=== PATIENT | male | born 1960 | race Caucasian/White ===

== ENCOUNTER 2020-07-10 12:33 | Observation (INO) | payer BC ==
[2020-07-10] MEDS ORDERED: Sodium Chloride 0.9% 1000 ML 1,000 ML ONE (12:37)
[2020-07-10] MEDS ORDERED: DECADRON 10MG INJ. IV ONE (12:45)
[2020-07-10] MEDS ORDERED: Ventolin Hfa MDI IH STA (12:46)
[2020-07-10 12:49] LABS: A-aADO2 188; ABG HEMOGLOBIN 15.5; ARTERIAL BLD GAS O2 SATURATION 89.3 % (95-100); ARTERIAL BLOOD GAS BASE EXCESS 0.9 (-2.0-2.0); ARTERIAL BLOOD GAS FIO2 40 %; ARTERIAL BLOOD GAS PCO2 33 mmHg (35-45); ARTERIAL BLOOD GAS PO2 56 mmHg (75-100); ARTERIAL BLOOD GAS pH 7.47 (7.35-7.45); CARBOXYHEMOGLOBIN 2.9 % THgb (0.0-6.9); HGB O2 SAT 86.4 g/dF (94-100); Lactic Acid 1.9 (0.4-2.0); Methhemoglobin 0.3 % (1.4-1.5); paO2 pAO1 0.23
[2020-07-10 12:50] LABS: ABG SITE LEFT RADIAL; ALLEN TEST OK? YES
[2020-07-10] MEDS ORDERED: DECADRON 10MG INJ. ONE (12:53)
[2020-07-10 13:01] LABS: Hematocrit 46.5 % (42-50); Hemoglobin 15.1 gm/dl (12.5-18.0); Mean Cell Volume 80.2 fl (78-100); Mean Corpuscular Hgb Concent. 32.5 g/dl (32-36); Mean Platelet Volume 9.2 fl (7.5-11.0); Platelet Count 415 K/mm3 (150-450); Red Cell Distribution Width 14.2 % (11.5-14.0); White Blood Count 13.4 K/mm3 (4.0-10.5)
[2020-07-10 13:14] LABS: INR 1.15 (0.8-3.0)
[2020-07-10] MEDS ORDERED: VENTOLIN COMMON CANISTER IH ONE (13:15)
[2020-07-10 13:17] LABS: PTT 31.2 SECONDS (24.1-36.1)
[2020-07-10 13:27] LABS: ALBUMIN 3.7 g/dL (3.5-5.0); ALKALINE PHOSPHATASE 125 U/L (38-126); ANION GAP 10.9 MEQ/L (5-15); BLOOD UREA NITROGEN 22 mg/dL (9-20); CHLORIDE 101 mmol/L (98-107); Calcium 9.1 mg/dL (8.4-10.2); Carbon Dioxide 30 mmol/L (22-30); EST GLOMERULAR FILTRATION RATE > 60.0 ML/MIN; Glucose 112 mg/dL (74-106); MAGNESIUM 2.1 mg/dL (1.6-2.3); NT PRO BNP 168 pg/mL (0-900); Potassium 4.3 mmol/L (3.5-5.1); SGOT/AST 68 U/L (17-59); SGPT/ALT 36 U/L (0-50); SODIUM 137 mmol/L (137-145); Total Protein 7.2 g/dL (6.3-8.2)
[2020-07-10 13:45] LABS: ANISOCYTOSIS 1+; ATYPICAL LYMPHS 2 %; BAND 7 % (0.0-2.0); Eosinophil 1 % (0.00-3.0); Lymphocytes 8 % (24-44); Monocyte 12 % (0.0-12.0); Neutrophils 70 % (36.-66.); Platelet Estimate NORMAL (NORMAL); Total Cells Counted 100; Toxic Granulation 1+
[2020-07-10] MEDS ORDERED: LEVOFLOXACIN 750MG/150ML D5W 750 MG/150 ML BAG IV STA (13:59)
[2020-07-10] MEDS ORDERED: Zosyn 3.375 GM Vial 3.375 GM in Sodium Chloride 100ML MINI-BAG PLUS 100 ML IV ONE (13:59)
--- NOTE | 2020-07-10 14:00 | XRAY ---
Indication: Short of breath. Positive Covid 19. Multiple contiguous axial images obtained through the chest using 100 cc Isovue 370 contrast and PE protocol. Comparison: None There is good opacification of the pulmonary arteries including lobar and segmental branches. No pulmonary embolus. Heart is borderline enlarged. Aorta is normal in course and caliber. 1.1 x 3.0 cm distal right peritracheal and 1.1 x 2.2 cm subcarinal prominent lymph nodes. No pathologic hilar lymphadenopathy. Small hiatal hernia. Lungs demonstrates extensive diffuse bilateral airspace disease without consolidation/effusion. Bony thorax intact. Limited upper abdomen demonstrates 12.6 cm splenomegaly. Impression: 1. Negative pulmonary embolus. 2. Extensive diffuse bilateral airspace disease without consolidation/effusion. 3. Prominent mediastinal lymph nodes presumed reactive. 4. Incidental borderline cardiomegaly, small hiatal hernia, and splenomegaly.
[2020-07-10] MEDS ORDERED: Zosyn 3.375 GM Vial IV ONE ×2 (14:04→22:46)
[2020-07-10] MEDS ORDERED: LEVOFLOXACIN 750MG/150ML D5W 750 MG/150 ML BAG IV ONE (14:05)
[2020-07-10] MEDS ORDERED: Sodium Chloride 100ML MINI-BAG PLUS 100 ML IV ONE (14:05)
--- NOTE | 2020-07-10 14:15 | ERPHSYRPT ---
- History of Present Illness Time Seen by Provider: 07/10/20 12:33 Source: patient Exam Limitations: clinical condition Patient Subjective Stated Complaint: shortness of breath, covid positive last week Triage Nursing Assessment: Pt brought to the ER by his , hypertensive, hypoxic, O2 was 60% on arrival and placed on a non-rebreather and it went to 100%, lungs with crackles anterior and posterior throughout, unable to get medical history, pulses normal, covid positive last week, skin n/w/d Physician History: 60 years old male with history of hypothyroidism presented in the ER with chief complaint of respiratory distress. Patient reports she has been having dry cough with shortness of breath for almost 1 week, positive COVID-19 day and late with progressive worsening for the last 2 to 3 days where he is getting short of breath even at rest pain and minimal activity he cannot catch his breath. He is feeling chest tightness wheezing, pressure with chills but no fever. Generalized weakness fatigue and body aches. On presentation his oxygen saturation is in low 60s, placed on nonrebreather and it improved pretty quickly to above 95%. Timing/Duration: week(s) (1), gradual onset, worse Activities at Onset: rest Severity of Dyspnea-Max: severe Severity of Dyspnea-Current: severe Possible Cause: illness exposure Modifying Factors: Improves With: albuterol inhaler. Worsens With: coughing, deep breath, exertion Associated Symptoms: cough, chest pain/discomfort, loss of appetite, wheezing, weakness, chills, tightness, No fever, No muscle spasms hands, No productive cough Allergies/Adverse Reactions: No Known Drug Allergies Allergy (Verified 07/10/20 12:46) Home Medications: Levothyroxine Sodium 75 Mcg [Synthroid 75 Mcg] 75 mcg PO DAILY 07/10/20 [History] Travel Risk - International Travel Have you traveled outside of the country in past 3 weeks: No - Coronavirus Screening Are you exhibiting any of the following symptoms?: Yes Symptoms: Shortness of Breath Close contact with a COVID-19 positive Pt in past 14-21 Days: Yes - Review of Systems Constitutional: Chills, Fatigue, Malaise, Weakness Eyes: No Symptoms Ears, Nose, & Throat: Nose Congestion Respiratory: Cough, Dyspnea, Dyspnea on Exertion (LEBRON), Wheezing Abdominal/Gastrointestinal: No Symptoms Genitourinary Symptoms: No Symptoms Musculoskeletal: Myalgias Neurological: No Symptoms Psychological: No Symptoms Endocrine: No Symptoms Hematologic/Lymphatic: No Symptoms Immunological/Allergic: No Symptoms - Past Surgical History Past Surgical History: No - Social History Smoking Status: Never smoker Exposure to second hand smoke: No Drug Use: none Patient Lives Alone: No - Nursing Vital Signs Nursing Vital Signs: Initial Vital Signs Temperature 97.5 F 07/10/20 12:34 Pulse Rate 84 07/10/20 12:34 Respiratory Rate 39 H 07/10/20 12:34 Blood Pressure 169/93 07/10/20 12:34 O2 Sat by Pulse Oximetry 60 L 07/10/20 12:34 Pain Scale Pain Intensity 0 - Physical Exam General Appearance: moderate distress, alert, anxiety Eye Exam: PERRL/EOMI, eyes nml inspection Ears, Nose, Throat Exam: hearing grossly normal, pharyngeal erythema Neck Exam: normal inspection, non-tender, supple, full range of motion Respiratory Exam: respiratory distress, airway intact, diminished breath sounds, crackles/rales, wheezing Cardiovascular/Chest Exam: normal heart sounds, regular rate/rhythm Abdominal/Gastrointestinal Exam: soft, normal bowel sounds, No tenderness Extremity Exam: non-tender, normal range of motion Neurologic Exam: alert, oriented x 3, cooperative, 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 Skin Exam: normal color, warm SpO2 Interpretation: normal SpO2: 95 O2 Delivery: Room Air - Course EKG Interpreted by Me: RATE (81), Sinus Rhythm, NORMAL AXIS, NORMAL INTERVALS, NORMAL QRS Ordered Tests: Active Orders 24 hr Category Date Time Status EKG-ER Only STAT Care 07/10/20 12:44 Active IV Insertion STAT Care 07/10/20 12:44 Active NPO (ED) STAT Care 07/10/20 12:44 Active CHEST 1 VIEW (PORTABLE) Stat Exams 07/10/20 12:45 Completed CHEST WITH CONTRAST [CT] Stat Exams 07/10/20 12:55 Completed ARTERIAL BLOOD GASES Stat Lab 07/10/20 12:44 Completed BLOOD CULTURE Stat Lab 07/10/20 13:55 Received CBC W DIFF Stat Lab 07/10/20 12:50 Completed CMP Stat Lab 07/10/20 12:50 Completed Lactic Acid Stat Lab 07/10/20 12:44 Completed Lactic Acid Stat Lab 07/10/20 14:50 Received MAGNESIUM Stat Lab 07/10/20 12:50 Completed Manual Differential NC Stat Lab 07/10/20 12:50 Completed NT PRO BNP Stat Lab 07/10/20 12:50 Completed PROTIME WITH INR Stat Lab 07/10/20 12:50 Completed PTT Stat Lab 07/10/20 12:50 Completed TROPONIN Q3H Lab 07/10/20 12:50 Completed TROPONIN Q3H Lab 07/10/20 15:45 Ordered TROPONIN Q3H Lab 07/10/20 18:45 Ordered TROPONIN Q3H Lab 07/10/20 21:45 Ordered TROPONIN Q3H Lab 07/11/20 00:45 Ordered TSH [TSH, 3RD Generation] Stat Lab 07/10/20 12:50 Completed UA W/RFX UR CULTURE Stat Lab 07/10/20 12:44 Ordered Respiratory MDI STAT RT 07/10/20 13:16 Active Respiratory Therapy Assessment DAILY RT 07/10/20 13:16 Active Transfer Order Routine Transfer 07/10/20 Ordered Medication Summary Generic Name Dose Route Start Last Admin Trade Name Freq PRN Reason Stop Dose Admin Levofloxacin/Dextrose 750 mg in 150 mls @ 100 mls/hr 07/10/20 13:59 07/10/20 14:10 Levofloxacin 750mg/150ml D5w IV 07/10/20 15:28 100 ml/hr STAT STA 100 mls/hr Administration Remdesivir 200 mg/ Sodium 250 mls @ 125 mls/hr 07/10/20 14:22 07/10/20 15:26 Chloride IV 07/10/20 16:21 125 mls/hr ONCE ONE Administration Discontinued Medications Generic Name Dose Route Start Last Admin Trade Name Freq PRN Reason Stop Dose Admin Albuterol Sulfate 1 gm 07/10/20 12:46 Ventolin Hfa Mdi IH 07/10/20 12:47 ONCE STA Albuterol Sulfate 4 puff 07/10/20 13:15 07/10/20 12:50 Ventolin Common Canister IH 07/10/20 13:16 4 puff STAT ONE Administration Dexamethasone Sodium Phosphate 10 mg 07/10/20 12:45 07/10/20 12:54 Decadron 10mg Inj. IV 07/10/20 12:46 10 mg STAT ONE Administration Dexamethasone Sodium Phosphate Confirm 07/10/20 12:53 Decadron 10mg Inj. Administered 07/10/20 12:54 Dose 10 mg .ROUTE .STK-MED ONE Diphenhydramine HCl Confirm 07/10/20 15:12 Benadryl 50 Mg/Ml Administered 07/10/20 15:13 Dose 50 mg .ROUTE .STK-MED ONE Sodium Chloride Confirm 07/10/20 12:37 Sodium Chloride 0.9% 1000 Ml Administered 07/10/20 12:38 Dose 1,000 mls @ ud .ROUTE .STK-MED ONE Piperacillin Sod/Tazobactam 100 mls @ 200 mls/hr 07/10/20 13:59 07/10/20 14:11 Sod 3.375 gm/ Sodium Chloride IV 07/10/20 14:28 200 mls/hr STAT ONE Administration Sodium Chloride Confirm 07/10/20 14:05 Sodium Chloride 100ml Mini-Bag Plus Administered 07/10/20 14:06 Dose 100 mls @ ud IV .STK-MED ONE Levofloxacin/Dextrose Confirm 07/10/20 14:05 Levofloxacin 750mg/150ml D5w Administered 07/10/20 14:06 Dose 750 mg in 150 mls @ ud IV .STK-MED ONE Piperacillin Sod/Tazobactam Sod Confirm 07/10/20 14:04 Zosyn 3.375 Gm Vial Administered 07/10/20 14:05 Dose 3.375 gm IV .STK-MED ONE Lab/Rad Data: Laboratory Result Diagrams 07/10/20 12:50 07/10/20 12:50 Laboratory Results 07/10/20 07/10/20 07/10/20 Range/Units 12:50 12:50 12:50 WBC (4.0-10.5) K/mm3 RBC (4.1-5.6) M/mm3 Hgb (12.5-18.0) gm/dl Hct (42-50) % MCV (78-100) fl MCH (26-32) pg MCHC (32-36) g/dl RDW (11.5-14.0) % Plt Count (150-450) K/mm3 MPV (7.5-11.0) fl Segmented Neutrophils (36.-66.) % Band Neutrophils (0.0-2.0) % Lymphocytes (Manual) (24-44) % Monocytes (Manual) (0.0-12.0) % Eosinophils (Manual) (0.00-3.0) % Atypical Lymphocytes % Toxic Granulation Platelet Estimate (NORMAL) RBC Morphology Anisocytosis PT 13.0 H (8.83-12.87) SECONDS INR 1.15 (0.8-3.0) APTT 31.2 (24.1-36.1) SECONDS Puncture Site pCO2 (35-45) mmHg pO2 (75-100) mmHg Base Excess (-2.0-2.0) O2 Saturation (94-100) g/dF ABG pH (7.35-7.45) ABG HCO3 (22-28) ABG O2 Sat (Measured) (95-100) % Dionicio Test A-a Gradient a/A Ratio Hemoglobin Carboxyhemoglobin (0.0-6.9) % THgb Methemoglobin (1.4-1.5) % Potassium (3.5-5.1) Temperature C POC O2 Flow Rate % Sodium (137-145) mmol/L Chloride (98-107) mmol/L Carbon Dioxide (22-30) mmol/L Anion Gap (5-15) MEQ/L BUN (9-20) mg/dL Creatinine (0.66-1.25) mg/dL Estimated GFR ML/MIN Glucose (74-106) mg/dL Lactic Acid (0.4-2.0) Calcium (8.4-10.2) mg/dL Magnesium (1.6-2.3) mg/dL Total Bilirubin (0.2-1.3) mg/dL AST (17-59) U/L ALT (0-50) U/L Alkaline Phosphatase (38-126) U/L Troponin I < 0.012 (0.000-0.034) ng/mL NT-Pro-B Natriuret Pep (0-900) pg/mL Serum Total Protein (6.3-8.2) g/dL Albumin (3.5-5.0) g/dL TSH 3rd Generation 4.230 (0.47-4.68) mIU/L 07/10/20 07/10/20 07/10/20 Range/Units 12:50 12:50 12:44 WBC 13.4 H (4.0-10.5) K/mm3 RBC 5.80 H (4.1-5.6) M/mm3 Hgb 15.1 (12.5-18.0) gm/dl Hct 46.5 (42-50) % MCV 80.2 (78-100) fl MCH 26.0 (26-32) pg MCHC 32.5 (32-36) g/dl RDW 14.2 H (11.5-14.0) % Plt Count 415 (150-450) K/mm3 MPV 9.2 (7.5-11.0) fl Segmented Neutrophils 70 H (36.-66.) % Band Neutrophils 7 H (0.0-2.0) % Lymphocytes (Manual) 8 L (24-44) % Monocytes (Manual) 12 (0.0-12.0) % Eosinophils (Manual) 1 (0.00-3.0) % Atypical Lymphocytes 2 % Toxic Granulation 1+ Platelet Estimate NORMAL (NORMAL) RBC Morphology ABNORMAL Anisocytosis 1+ PT (8.83-12.87) SECONDS INR (0.8-3.0) APTT (24.1-36.1) SECONDS Puncture Site LEFT RADIAL pCO2 33 L (35-45) mmHg pO2 56 L (75-100) mmHg Base Excess 0.9 (-2.0-2.0) O2 Saturation 86.4 L (94-100) g/dF ABG pH 7.47 H (7.35-7.45) ABG HCO3 24.0 (22-28) ABG O2 Sat (Measured) 89.3 L (95-100) % Dionicio Test YES A-a Gradient 188 a/A Ratio 0.23 Hemoglobin 15.5 Carboxyhemoglobin 2.9 (0.0-6.9) % THgb Methemoglobin 0.3 L (1.4-1.5) % Potassium 4.3 4.0 (3.5-5.1) Temperature 37.0 C POC O2 Flow Rate 40 % Sodium 137 (137-145) mmol/L Chloride 101 (98-107) mmol/L Carbon Dioxide 30 (22-30) mmol/L Anion Gap 10.9 (5-15) MEQ/L BUN 22 H (9-20) mg/dL Creatinine 0.90 (0.66-1.25) mg/dL Estimated GFR > 60.0 ML/MIN Glucose 112 H (74-106) mg/dL Lactic Acid 1.9 (0.4-2.0) Calcium 9.1 (8.4-10.2) mg/dL Magnesium 2.1 (1.6-2.3) mg/dL Total Bilirubin 0.80 (0.2-1.3) mg/dL AST 68 H (17-59) U/L ALT 36 (0-50) U/L Alkaline Phosphatase 125 (38-126) U/L Troponin I (0.000-0.034) ng/mL NT-Pro-B Natriuret Pep 168 (0-900) pg/mL Serum Total Protein 7.2 (6.3-8.2) g/dL Albumin 3.7 (3.5-5.0) g/dL TSH 3rd Generation (0.47-4.68) mIU/L - Progress Progress: improved Air Movement: fair Progress Note: 07/10/20 14:14 Patient was in moderate to severe distress on presentation with sats around low 60s. Placed on nonrebreather and it quickly turned around with sats well above 95% and his work of breathing also improved. He is given albuterol puffs and Decadron and switched to 5 L oxygen with sats around 94% with much improved level of distress. EKG showed sinus rhythm with no acute ST elevation. Has a white count of 13. I have obtained CTA chest which ruled out pulmonary embolism but has bilateral airspace disease which is consistent with Covid 19 infection. He is given a dose of broad-spectrum antibiotics Levaquin and Zosyn along with remdesivir. Discussed with Dr. Ruiz and patient is admitted to ICU. Blood Culture(s) Obtained: Yes Antibiotics given: Yes Discussed with Dr.: Other () Will see patient in: hospital (full admit) Counseled pt/family regarding: lab results, diagnosis, rad results - Departure Departure Disposition: In-patient Admission Clinical Impression: COVID-19 virus detected Pneumonia Qualifiers: Pneumonia type: due to unspecified organism Laterality: bilateral Lung location: unspecified part of lung Qualified Code(s): J18.9 - Pneumonia, unspecified organism Respiratory failure Qualifiers: Chronicity: acute Respiratory failure complication: hypoxia Qualified Code(s): J96.01 - Acute respiratory failure with hypoxia Condition: Fair Critical Care Time: Yes Critical Care Time(excluding separately billable procedures): Critical 30-74 mins Referrals: DOCTOR,NO FAMILY [Primary Care Provider] -
[2020-07-10] MEDS ORDERED: REMDESIVIR 200 MG in Sodium Chloride 0.9% 250 ML 250 ML IV ONE (14:22)
--- NOTE | 2020-07-10 14:35 | XRAY ---
Indication: Short of breath. Positive Covid 19. Portable chest demonstrates diffuse bilateral patchy airspace disease without consolidation/large effusion. Heart is borderline enlarged. Bony thorax intact.
[2020-07-10] MEDS ORDERED: BENADRYL 50 MG/ML ONE (15:12)
[2020-07-10] MEDS ORDERED: Zofran 4 MG/2 ML VIAL IV PRN (16:17)
[2020-07-10] MEDS ORDERED: TYLENOL 325 MG PO PRN (16:17)
[2020-07-10] MEDS ORDERED: ENOXAPARIN SODIUM SQ SCH (16:45)
[2020-07-10] MEDS ORDERED: Ativan 1 MG PO PRN (16:52)
[2020-07-10] MEDS ORDERED: Lactated Ringers 1,000 ML IV SCH (17:00)
[2020-07-10] MEDS: VENTOLIN COMMON CANISTER IH SCH ×2 (17:30→17:58)
[2020-07-10] MEDS: Zosyn 3.375 GM Vial 3.375 GM in Sodium Chloride 100ML MINI-BAG PLUS 100 ML IV SCH (18:00)
[2020-07-10] MEDS: ENOXAPARIN SODIUM SQ SCH ×2 (22:36→23:03)
[2020-07-10] MEDS ORDERED: Sodium Chloride 0.9% 100 ML IVPB 0 ML IV ONE (22:48)
[2020-07-10] MEDS: Decadron 4 MG INJ IV SCH (23:04)
[2020-07-10] MEDS: Pepcid 20 MG VIAL IV SCH (23:04)
[2020-07-11] MEDS: Zosyn 3.375 GM Vial 3.375 GM in Sodium Chloride 100ML MINI-BAG PLUS 100 ML IV SCH ×3 (00:12→12:14)
[2020-07-11 00:45] LABS: Appearance CLEAR (CLEAR); Bilirubin NEGATIVE (NEGATIVE); Blood NEGATIVE Ery/ul (0-5); Glucose >=500 mg/dL (NEGATIVE); Ketones NEGATIVE (NEGATIVE); Leukocyte Esterase NEGATIVE (NEGATIVE); Nitrite NEGATIVE (NEGATIVE); Protein,Urine Dip NEGATIVE (Negative); Specific Gravity 1.035 (1.005-1.025); Urobilinogen NEGATIVE mg/dL (0-1)
[2020-07-11 05:27] LABS: Hematocrit 42.8 % (42-50); Hemoglobin 13.9 gm/dl (12.5-18.0); Mean Corpuscular Hgb Concent. 32.5 g/dl (32-36); Mean Platelet Volume 9.2 fl (7.5-11.0); Platelet Count 356 K/mm3 (150-450); Red Blood Count 5.35 M/mm3 (4.1-5.6); Red Cell Distribution Width 13.8 % (11.5-14.0); White Blood Count 9.4 K/mm3 (4.0-10.5)
[2020-07-11] MEDS: VENTOLIN COMMON CANISTER IH SCH ×2 (05:50→10:15)
[2020-07-11 05:51] LABS: ALBUMIN 3.2 g/dL (3.5-5.0); ALKALINE PHOSPHATASE 105 U/L (38-126); ANION GAP 8.6 MEQ/L (5-15); BLOOD UREA NITROGEN 22 mg/dL (9-20); CHLORIDE 104 mmol/L (98-107); Calcium 8.5 mg/dL (8.4-10.2); Carbon Dioxide 26 mmol/L (22-30); Creatinine 1 0.75 mg/dL (0.66-1.25); EST GLOMERULAR FILTRATION RATE > 60.0 ML/MIN; Glucose 140 mg/dL (74-106); Potassium 4.6 mmol/L (3.5-5.1); SGOT/AST 46 U/L (17-59); SGPT/ALT 28 U/L (0-50); SODIUM 134 mmol/L (137-145); Total Protein 6.4 g/dL (6.3-8.2)
[2020-07-11 06:14] LABS: ANISOCYTOSIS 1+; Lymphocytes 14 % (24-44); Monocyte 4 % (0.0-12.0); Neutrophils 82 % (36.-66.); Platelet Estimate NORMAL (NORMAL); Poikilocytosis 1+; Polychromasia 1+; Total Cells Counted 100
[2020-07-11 07:36] LABS: INR 1.31 (0.8-3.0); PROTIME 14.8 SECONDS (8.83-12.87)
[2020-07-11] MEDS: ENOXAPARIN SODIUM SQ SCH (08:10)
[2020-07-11] MEDS ORDERED: ECOTRIN 81 MG PO SCH (10:00)
[2020-07-11] MEDS ORDERED: LEVOFLOXACIN 750MG/150ML D5W 750 MG/150 ML BAG IV SCH (10:00)
[2020-07-11] MEDS ORDERED: CLARITIN 10 MG PO SCH (10:00)
[2020-07-11] MEDS ORDERED: NON-FORMULARY ITEM (Multivitamin [Multivitamin] 1 EACH) PO SCH (10:00)
[2020-07-11] MEDS ORDERED: SYNTHROID 75 MCG PO SCH (10:00)
[2020-07-11] MEDS ORDERED: THERAGRAN MULTIVITAMIN PO SCH (10:00)
[2020-07-11] MEDS: Decadron 4 MG INJ IV SCH (10:08)
[2020-07-11] MEDS: Pepcid 20 MG VIAL IV SCH (10:08)
--- NOTE | 2020-07-11 11:15 | SSS ---
CHIEF COMPLAINT: Very short of breath. 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 Apparently he has been short of breath for five to seven days and has self-isolated but today he could not breathe at all and was brought in by ambulance. He presented with like 40% O2 in the emergency room and was put on 100% rebreather. Slowly his oxygen got up to 88%. He has no history of lung disease. He has history of hypothyroidism. He stated he has had no fever but chills, tightness in his chest, general myalgia and severe weakness. I am not for sure where he got the disease but he does work in the public. PHYSICAL EXAMINATION: The patient is an appropriately aged 60 year old white male who is having trouble breathing, looks quite panicky. VITAL SIGNS: Temperature 98F, pulse 110, respirations 20, blood pressure 170/93. O2 saturation presently on 100% is about 90%. HEENT: Pupils equal and reactive to light. Hears fairly well. Apparently his stated he will say "yes" to a lot of things that he does not understand as there is a language problem to some degree. CHEST: Few crackles bilateral, decreased breath sounds. CVS: Tachycardic, regular rate. ABDOMEN: Slightly distended, soft. No tenderness. NEUROLOGIC: He is alert, orientated and cooperative. Cranial nerves intact. 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 He uses legs without problems. EXTREMITIES: No cyanosis. No edema. SKIN: Normal. IMPRESSION: The patient's COVID test was positive. CT scan did show COVID pneumonia extensively. Initially was stabilized with oxygen like at 7. Overnight he deteriorated. By the time I saw him they had him on high flow oxygen and he was struggling with his O2 in the 90's. He was anticoagulated with Lovenox. He was given 8 mg of Decadron and 200 mg Remdesivir. We reached out to [facility] and they have agreed to take him in transfer. They are waiting for an ICU bed at the present time. The patient is stable at the present time. Expect to be able to transfer him before afternoon is over.
[2020-07-11 12:22] VITALS: BP 119/70
[2020-07-11 12:48] LABS: A-aADO2 626; ABG HEMOGLOBIN 14.2; ABG POTASSIUM 4.4 (3.5-5.1); ARTERIAL BLD GAS O2 SATURATION 82.6 % (95-100); ARTERIAL BLOOD GAS FIO2 100 %; ARTERIAL BLOOD GAS PCO2 31 mmHg (35-45); ARTERIAL BLOOD GAS pH 7.49 (7.35-7.45); CARBOXYHEMOGLOBIN 1.5 % THgb (0.0-6.9); HCO3- 23.6 (22-28); HGB O2 SAT 80.9 g/dF (94-100); Methhemoglobin 0.6 % (1.4-1.5); paO2 pAO1 0.07
[2020-07-11 12:49] LABS: ABG SITE RIGHT RADIAL; ALLEN TEST OK? YES; ARTERIAL BLOOD GAS PO2 48 mmHg (75-100)
[2020-07-11] MEDS ORDERED: REMDESIVIR 100 MG in Sodium Chloride 0.9% 100 ML IVPB 100 ML IV SCH (14:00)
[2020-07-11 14:37] VITALS: PULSE 75; O2SAT 94
== END 2020-07-11 14:36 | disposition home or self-care (01) ==
LOC: ED 12:33 → MED SURG 16:08 → INTOOBSV 16:08
PROVIDERS: ADMIT Family Medicine; ATTEND Family Medicine
DX: U07.1 COVID-19 (principal); J12.89 Other viral pneumonia; Z79.899 Other long term (current) drug therapy
CPT/HCPCS: 36000; 36415; 36600; 71045; 71260; 80053; 81001; 82375; 82803; 83605; 83735; 83880; 84443; 84484; 85025; 85610; 85730; 87040; 93005; 93268; 94640; 94762; 96365; 96367; 96368; 96374; 99285; 99291; G0378; 96375; J1100; J1200; J1650; J1956; A9270-GY

== ENCOUNTER 2023-06-21 10:40 | Day surgery (SDC) | payer BC, OTHER ==
[2023-06-21 11:25] VITALS: RESP 18
[2023-06-21] MEDS ORDERED: Lactated Ringers 1,000 ML IV SCH (11:30)
[2023-06-21] MEDS ORDERED: Versed 2 MG/2 ML Injection ONE (12:02)
[2023-06-21] MEDS ORDERED: DIPRIVAN 200 MG/20 ML IV ONE ×2 (12:02→12:20)
[2023-06-21 13:03] VITALS: O2SAT 100
[2023-06-21 13:37] VITALS: BP 106/74; PULSE 55; TEMP 97
--- NOTE | 2023-06-22 11:01 | OP ---
PROCEDURE DATE/TIME: 06/21/2023 1203 PREOPERATIVE DIAGNOSIS: Screening. POSTOPERATIVE DIAGNOSES: 1) Polyps. 2) Diverticulosis. PROCEDURE: Colonoscopy with cold forceps polypectomy x2. PROCEDURE PERFORMED BY: Ny Patterson M.D. COMPLICATIONS: None. ESTIMATED BLOOD LOSS: Minimal. ANESTHESIA: MAC. SPECIMEN: Colon polyp splenic flexure and rectal. HISTORY: This is a gentleman who presents for screening colonoscopy. Risks, benefits, alternatives have been discussed with him in detail. He understands, agrees and would like to proceed. He was seen in the preoperative area. H&P and consent reviewed with him and confirmed. DESCRIPTION OF PROCEDURE: He was brought to the endoscopy suite and laid in left lateral decubitus position. A complete time out is performed. First, a rectal exam was done which was normal and then the scope was inserted and gently advanced to the level of the cecum. The ileocecal valve and appendix were clearly visualized. He does have diverticulosis and he did have diverticula in the cecum as well that was small to medium in size. He did also have moderate staining. We were able to irrigate a significant amount of the liquid stool throughout the colon and his prep was satisfactory but it was fair using Aronchick scale. As we carefully withdrew the scope, we identified two small polyps that were less than 1 cm and sessile in nature. These were identified in the rectum and the splenic flexure. These were taken in entirety with cold forceps and sent to pathology. The site was hemostatic. The scope was then further withdrawn. We had additional diverticulosis in the sigmoid and then the scope was completely removed. There were no other findings. The patient tolerated the procedure very well. There were no immediate complications. I have discussed all of the results and the tentative plan with his family in the postoperative area. Tentative plan will be for colonoscopy in approximately seven years due to two very small polyps being identified with fair prep. I have recommended to him to come sooner should he have any symptoms for earlier evaluation. The patient understands and he will be following up with me as an outpatient.
== END 2023-06-21 13:35 | disposition home or self-care (01) ==
LOC: SDC 10:40
PROVIDERS: ATTEND Surgery
DX: Z12.11 Encounter for screening for malignant neoplasm of colon (principal); K63.5 Polyp of colon; K57.30 Diverticulosis of large intestine without perforation or abscess without bleeding
CPT/HCPCS: J2250; J2704

== ENCOUNTER 2023-08-16 12:11 | Day surgery (SDC) | payer BC ==
[2023-08-16] MEDS ORDERED: Lactated Ringers 1,000 ML IV ONE (12:13)
[2023-08-16] MEDS ORDERED: Lactated Ringers 1,000 ML IV SCH (12:30)
[2023-08-16] MEDS ORDERED: Versed 2 MG/2 ML Injection ONE (16:02)
[2023-08-16] MEDS ORDERED: DIPRIVAN 200 MG/20 ML IV ONE (16:02)
[2023-08-16 16:46] VITALS: RESP 16
[2023-08-16 17:10] VITALS: BP 106/72; PULSE 57; TEMP 97.4; O2SAT 98
--- NOTE | 2023-08-18 09:53 | OP ---
PROCEDURE DATE/TIME: 08/16/2023 1604 PREOPERATIVE DIAGNOSIS: Upper abdominal pain. POSTOPERATIVE DIAGNOSIS: Gastritis and scarring consistent with resolved peptic ulcer disease, normal duodenum, small hiatal hernia. PROCEDURE: EGD with biopsy. PROCEDURE PERFORMED BY: Ny Patterson M.D. ESTIMATED BLOOD LOSS: Minimal. ANESTHESIA: MAC. COMPLICATIONS: None. SPECIMEN: Antral biopsy. HISTORY: This is a gentleman who presented with abdominal pain. Risks, benefits and alternatives have been discussed regarding EGD. He would like to proceed. He was seen in the preoperative area. His H&P and consent reviewed with him and confirmed. All questions have been answered to his satisfaction. DESCRIPTION OF PROCEDURE: He was brought back to the endoscopy suite, laid in the left lateral decubitus position. A complete time out was performed. The scope was then entered into the mouth, oropharynx down into the esophagus, stomach and into the duodenum to approximately the level of the second portion. The duodenum appeared normal. Scope was carefully withdrawn taking a good view with no findings in the duodenum. In the stomach, the patient did have some mild gastritis as well as two subtle scars that would be consistent with healed peptic ulcer disease. These do look fully healed and this may be a reason for his initial significant upper abdominal pain. He is still having some pain and so I did take biopsies in the antrum and sent these for pathology. We did a retroflex view as well which was normal except for a small hiatal hernia and the gastritis and then the scope was carefully withdrawn and showed hemostasis and no other finding. The gastroesophageal junction was at approximately 38 cm. His hiatal hernia is quite small. He does not have any significant reflux finding. The remainder of his esophagus was normal. The scope completely withdrawn. The patient tolerated the procedure very well. He will be going to recovery in stable condition. I have discussed with his family the initial instructions, patient recommendation of anti-reflux diet and lifestyle and he will also be following up with me as an outpatient.
== END 2023-08-16 17:15 | disposition home or self-care (01) ==
LOC: SDC 12:11
PROVIDERS: ATTEND Surgery
DX: K29.70 Gastritis, unspecified, without bleeding (principal); K44.9 Diaphragmatic hernia without obstruction or gangrene; R10.10 Upper abdominal pain, unspecified
CPT/HCPCS: J2250; J2704